=== PATIENT | male | born 1975 | race Caucasian/White ===

== ENCOUNTER 2023-05-12 16:21 | Inpatient (IN) | payer OTHER ==
[2023-05-12] VITALS (13 sets, daily range): BP systolic 95–147; BP diastolic 44–99; PULSE 50–143; RESP 14–25; TEMP 97.5–98.4; O2SAT 96–100
[~2023-05-12] VITALS: Ht 198.1 cm; Wt 129.0 kg
[2023-05-12] MEDS ORDERED: nitroGLYCERIN 0.2mg/hour patch TD STA (16:42)
[2023-05-12] MEDS ORDERED: metoprolol tartrate 1mg/ml inj IV ONE (16:45)
[2023-05-12] MEDS ORDERED: normal saline 1000ML IV soln IVB ONE (16:45)
[2023-05-12] MEDS ORDERED: aspirin 81mg tab.chew PO ONE (16:45)
[2023-05-12 16:58] LABS: BASOPHILS # (AUTO) 0.1 X10'3 (0-0.2); BASOPHILS % (AUTO) 0.8 % (0-1); EOSINOPHILS # (AUTO) 0.1 X10'3 (0-0.9); EOSINOPHILS % (AUTO) 0.7 % (0-6); HEMATOCRIT 48.3 % (42.0-52.0); HEMOGLOBIN 16.7 g/dl (14.0-17.9); LYMPHOCYTES % (AUTO) 24.7 % (21-51); MEAN CORPUSCULAR HEMOGLOBIN 33.1 PG (27.0-31.0); MEAN CORPUSCULAR HGB CONC 34.7 g/dL (33.0-36.5); MEAN CORPUSCULAR VOLUME 95.4 FL (78-98); MEAN PLATELET VOLUME 7.1 FL (7.4-10.4); MONOCYTES # (AUTO) 1.3 X10'3 (0-0.9); MONOCYTES % (AUTO) 10.8 % (2-12); NEUTROPHILS # (AUTO) 7.5 X10'3 (1.8-7.7); PLATELET COUNT 314 X10'3 (140-440); RED BLOOD COUNT 5.06 X10'6 (4.70-6.10); RED CELL DISTRIBUTION WIDTH 13.4 % (11.5-14.5)
[2023-05-12] MEDS ORDERED: fentaNYL/PF 50MCG/1 ML 2ML syringe ONE (17:06)
[2023-05-12] MEDS ORDERED: midazolam 1 mg/ML 2ml injection ONE ×2 (17:06→17:11)
[2023-05-12 17:10] LABS: APTT 26 SECONDS (22-32); PROTHROMBIN TIME 10.3 SECONDS (9.0-12.0)
[2023-05-12] MEDS ORDERED: iohexol 350MG/ML 100ml bottle IV ONE (17:11)
[2023-05-12] MEDS ORDERED: ticagrelor 90mg tablet ONE (17:15)
[2023-05-12 17:17] LABS: ALANINE AMINOTRANSFERASE 43 U/L (12-78); ALBUMIN 3.8 G/DL (3.4-5.0); ALBUMIN/GLOBULIN RATIO 0.9 (1.1-1.5); ALKALINE PHOSPHATASE 79 IU/L (46-116); ANION GAP 13 (8-16); ASPARTATE AMINO TRANSFERASE 24 U/L (10-37); BILIRUBIN,TOTAL 0.7 MG/DL (0.1-1.0); BLOOD UREA NITROGEN 13 MG/DL (7-18); CALCIUM 9.1 MG/DL (8.5-10.1); CHLORIDE 101 MMOL/L (99-107); CREATININE 1.08 MG/DL (0.60-1.10); GLUCOSE 97 MG/DL (70-104); MAGNESIUM 1.9 MG/DL (1.5-2.4); PRO BRAIN NATRIURETIC PEPTIDE 80 PG/ML (0-125); SODIUM 138 MMOL/L (135-145); TOTAL CARBON DIOXIDE 24.1 MMOL/L (24-32); TOTAL PROTEIN 8.2 G/DL (6.4-8.2); eCRCL 109 ML/MIN; eGFR 73 ML/MIN
[2023-05-12 17:20] LABS: POTASSIUM 2.8 MMOL/L (3.5-5.1)
[2023-05-12] MEDS ORDERED: HYDROcodone/acetaminophen 5mg/325mg tablet PO PRN (18:50)
[2023-05-12] MEDS ORDERED: OXAZEpam 15mg capsule PO PRN (18:50)
[2023-05-12] MEDS ORDERED: nitroGLYCERIN 0.4mg SUBLingual tab SL PRN (18:50)
[2023-05-12] MEDS ORDERED: ondansetron/PF 4mg/2ml inj IV PRN (18:50)
[2023-05-12] MEDS ORDERED: HYDROcodone/acetaminophen 10/325mg tab PO PRN (18:50)
[2023-05-12] MEDS ORDERED: proCHLORperazine 10 MG/2 ml inj IV PRN (18:50)
[2023-05-12] MEDS ORDERED: potassium Cl 20 mEq SR tablet PO STA ×2 (20:22)
[2023-05-12] MEDS: metoprolol tartrate 25mg tablet PO SCH (20:44)
[2023-05-12] MEDS ORDERED: atorvastatin 20mg tablet PO SCH (21:00)
[2023-05-12] MEDS: normal saline 1000ml 1,000 ML IV SCH (21:45)
[2023-05-13] VITALS (9 sets, daily range): BP systolic 115–151; BP diastolic 92–105; PULSE 65–126; RESP 13–21; TEMP 96.9–97.6; O2SAT 94–98
[2023-05-13] MEDS: normal saline 1000ml 1,000 ML IV SCH ×2 (04:50→14:50)
[2023-05-13] MEDS ORDERED: losartan 50mg tablet PO SCH (08:00)
[2023-05-13] MEDS ORDERED: aspirin 81mg, enteric-coated 1 TAB TABLET.DR PO SCH (08:00)
[2023-05-13] MEDS: ticagrelor 90mg tablet PO SCH ×2 (08:17→18:11)
[2023-05-13] MEDS: metoprolol tartrate 25mg tablet PO SCH (08:19)
[2023-05-13] MEDS ORDERED: PANT20TA18 PO (08:22)
[2023-05-13] MEDS ORDERED: NEBI5TAB12 PO (08:22)
[2023-05-13 08:31] LABS: ALBUMIN 3.1 G/DL (3.4-5.0); ANION GAP 9 (8-16); BLOOD UREA NITROGEN 8 MG/DL (7-18); CALCIUM 8.5 MG/DL (8.5-10.1); CHLORIDE 107 MMOL/L (99-107); CHOL/HDL RATIO 4.2 (0.00-4.99); CHOLESTEROL 241 MG/DL (0-200); GLUCOSE 92 MG/DL (70-104); HDL CHOLESTEROL 57 MG/DL (35-60); LDL CHOLESTEROL 155 MG/DL (50-100); SODIUM 140 MMOL/L (135-145); TOTAL CARBON DIOXIDE 23.7 MMOL/L (24-32); TRIGLYCERIDES 135 MG/DL (20-135); eCRCL 148 ML/MIN; eGFR > 90 ML/MIN
[2023-05-13] MEDS ORDERED: pantoprazole 40mg Tablet.DR PO SCH (13:45)
[2023-05-13] MEDS ORDERED: LOSA50TA64 PO (16:57)
[2023-05-13] MEDS ORDERED: TICA90TA PO (16:57)
[2023-05-13] MEDS ORDERED: NITR0.4T51 SL (16:57)
[2023-05-13] MEDS ORDERED: ATOR20TA66 PO (16:57)
[2023-05-13] MEDS ORDERED: LOP25T PO (16:57)
[2023-05-13] MEDS ORDERED: ASPI-1071 PO (16:57)
== END 2023-05-13 18:55 | disposition home or self-care (01) | DRG 322 ==
LOC: ER 16:22 → PCU 3S 17:30
PROVIDERS: ADMIT Internal Medicine Interventional Cardiology; ATTEND Internal Medicine Interventional Cardiology
PROC: 027034Z Dilation of Coronary Artery, One Artery with Drug-eluting Intraluminal Device, Percutaneous Approach (ICD-10-PCS; principal; 2023-05-12)
PROC: 4A023N7 Measurement of Cardiac Sampling and Pressure, Left Heart, Percutaneous Approach (ICD-10-PCS; 2023-05-12)
PROC: B2111ZZ Fluoroscopy of Multiple Coronary Arteries using Low Osmolar Contrast (ICD-10-PCS; 2023-05-12)
DX: I21.3 ST elevation (STEMI) myocardial infarction of unspecified site (principal); I25.10 Atherosclerotic heart disease of native coronary artery without angina pectoris; K21.9 Gastro-esophageal reflux disease without esophagitis; I10 Essential (primary) hypertension; E87.6 Hypokalemia; E78.5 Hyperlipidemia, unspecified; L40.9 Psoriasis, unspecified; F17.290 Nicotine dependence, other tobacco product, uncomplicated; F10.90 Alcohol use, unspecified, uncomplicated; Z79.82 Long term (current) use of aspirin; Z88.0 Allergy status to penicillin; Z82.49 Family history of ischemic heart disease and other diseases of the circulatory system
CPT/HCPCS: 93306; 93454; 99285; C9606; 36415; 71045; 80048; 80053; 80061; 83735; 83880; 84484; 85025; 85610; 85730; 86885; 86900; 86901; 87081; 93005; 99152; 99153; A6258; C1725; C1751; C1769; C1874; G0378; J2250; J3010; J3490; J7030; Q9967

== ENCOUNTER 2023-09-24 08:12 | Emergency (ER) | payer OTHER ==
[~2023-09-24] VITALS: Ht 198.1 cm; Wt 118.3 kg
[~2023-09-24 08:12] MED LIST: ASPI-1071 PO; ATOR20TA66 PO; LOP25T PO; LOSA50TA64 PO; NITR0.4T51 SL; PANT20TA18 PO; TICA90TA PO
[2023-09-24 08:36] LABS: BASOPHILS # (AUTO) 0.1 X10'3 (0-0.2); BASOPHILS % (AUTO) 0.8 % (0-1); EOSINOPHILS # (AUTO) 0.1 X10'3 (0-0.9); EOSINOPHILS % (AUTO) 1.1 % (0-6); HEMATOCRIT 45.3 % (42.0-52.0); HEMOGLOBIN 15.4 g/dl (14.0-17.9); LYMPHOCYTES # (AUTO) 2.3 X10'3 (1.1-4.8); MEAN CORPUSCULAR HEMOGLOBIN 32.3 PG (27.0-31.0); MEAN CORPUSCULAR HGB CONC 34.1 g/dL (33.0-36.5); MEAN CORPUSCULAR VOLUME 94.7 FL (78-98); MEAN PLATELET VOLUME 7.3 FL (7.4-10.4); MONOCYTES # (AUTO) 1.4 X10'3 (0-0.9); MONOCYTES % (AUTO) 14.1 % (2-12); NEUTROPHILS # (AUTO) 6.2 X10'3 (1.8-7.7); PLATELET COUNT 338 X10'3 (140-440); RED BLOOD COUNT 4.78 X10'6 (4.70-6.10); RED CELL DISTRIBUTION WIDTH 13.2 % (11.5-14.5); WHITE BLOOD COUNT 10.2 X10'3 (4.5-11.0)
[2023-09-24 08:50] LABS: ALANINE AMINOTRANSFERASE 35 U/L (12-78); ALBUMIN 3.6 G/DL (3.4-5.0); ALBUMIN/GLOBULIN RATIO 0.9 (1.1-1.5); ALKALINE PHOSPHATASE 87 IU/L (46-116); ANION GAP 9 (8-16); ASPARTATE AMINO TRANSFERASE 23 U/L (10-37); BILIRUBIN,TOTAL 0.8 MG/DL (0.1-1.0); BLOOD UREA NITROGEN 8 MG/DL (7-18); BUN/CREATININE RATIO 8.2 (10.0-20.0); CALCIUM 8.8 MG/DL (8.5-10.1); CHLORIDE 100 MMOL/L (99-107); CREATININE 0.98 MG/DL (0.60-1.10); GLUCOSE 101 MG/DL (70-104); POTASSIUM 3.6 MMOL/L (3.5-5.1); SODIUM 133 MMOL/L (135-145); TOTAL CARBON DIOXIDE 24.1 MMOL/L (24-32); TOTAL PROTEIN 7.8 G/DL (6.4-8.2); eCRCL 120 ML/MIN; eGFR 82 ML/MIN
[2023-09-24 08:58] LABS: PRO BRAIN NATRIURETIC PEPTIDE 70 PG/ML (0-125)
[2023-09-24 12:33] VITALS: BP 135/79; PULSE 75; RESP 14; TEMP 98; O2SAT 100
== END 2023-09-24 12:35 | disposition home or self-care (01) ==
LOC: ER 08:12
DX: R07.89 Other chest pain (principal); I10 Essential (primary) hypertension; K21.9 Gastro-esophageal reflux disease without esophagitis; Z88.0 Allergy status to penicillin; Z79.82 Long term (current) use of aspirin; Z79.899 Other long term (current) drug therapy
CPT/HCPCS: 36415; 71045; 80053; 83880; 84484; 85025; 93005; 99285

== ENCOUNTER 2025-01-08 18:12 | Inpatient (IN) | payer OTHER ==
[~2025-01-08] VITALS: Ht 198.1 cm; Wt 118.0 kg
[~2025-01-08 18:12] MED LIST changes: +heparin, porcine-25,000 units/D5-250ml premix IV ONE; +metoprolol tartrate 1mg/ml inj IV ONE
--- NOTE | 2025-01-08 18:33 | ELECTROCARDIOGRAPH REPORT ---
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
[2025-01-08 18:42] LABS: MEAN PLATELET VOLUME 7.8 FL (7.4-10.4); RED CELL DISTRIBUTION WIDTH 13.1 % (11.5-14.5)
[2025-01-08 18:56] LABS: CREATININE 1.02 MG/DL (0.60-1.10); PRO BRAIN NATRIURETIC PEPTIDE 715 PG/ML (0-125); TOTAL CARBON DIOXIDE 27.1 MMOL/L (24-32); eGFR 78 ML/MIN
--- NOTE | 2025-01-08 19:05 | Physician Documentation ---
History of Present Illness General Chief Complaint: Chest Pain Stated Complaint: CP/SOB Time Seen by MD: 19:05 History of Present Illness Initial Comments The patient is a 49-year-old male with a past history of coronary artery disease in an RCA stent in the past and known disease of his LAD that was not stented. The patient states he has had stuttering chest pain over last four days. Patient states he has intermittently had chest pain usually lasting minutes to 1/2 hour or so throughout the day. The patient states he had pain prior to arrival in the emergency room it was resolved by the time he arrived in the emergency room. Patient does complain of some thoracic back pain. He also had some slight sweats. The patient has a strong family history of cardiac disease. The patient does have hypertension. He is a nonsmoker. Patient's symptoms improved but during the H and P the patient developed some slight substernal chest pressure. States he takes a baby aspirin at home. Medication Reconciliation Allergies: Coded Allergies: Penicillins (Verified Allergy, Unknown, 09/24/23) Scheduled Aspirin (Ecotrin*), 1 TAB PO DAILY Atorvastatin Calcium (Atorvastatin Calcium), 40 MG PO HS Losartan Potassium (Losartan Potassium), 50 MG PO DAILY Metoprolol Tartrate* (Lopressor tablet*), 25 MG PO BID Pantoprazole Sodium (Protonix), 1 TAB PO BID, (Reported) Ticagrelor (Brilinta), 90 MG PO BID Scheduled PRN Nitroglycerin SL* (Nitrostat SL*), 0.4 MG SL Q5MIN PRN for X3 CHEST PAIN-NOTIFY MD Past Medical History Past Medical History: Hypertension, GERD, Psoriasis Past Surgical History: no surgical history Alcohol Use: Occasionally Drug Use: none Lives with: Spouse Lives In: Home Occupation: employed Review of Systems All Other Systems at this time: Reviewed and Negative Physical Exam Physical Exam Vital Signs: Temperature: 98.1, Source: Temporal, Heart Rate: 95, Respiratory Rate: 16, BP: 136/97, Pulse Oximetry: 98 Oxygen Flow Rate: 0 Physical Exam VITALS: Reviewed and as above. GENERAL: Alert, no apparent distress. HEENT: Normocephalic, atraumatic, PERRL, EOMI, dry mucosa, no erythema RESPIRATORY: Lungs clear, normal breath sounds, no respiratory distress. CHEST: No accessory muscle use, no retractions CV: Regular rate, rhythm, no edema, no murmur, No: JVD GI: Soft, non-tender, bowels sounds present, no rebound, guarding, or rigidity BACK: No CVA tenderness, or swelling MUSCULOSKELETAL: No deformities, no edema SKIN: Warm and dry, no rash NEURO: Oriented x4, No motor or sensory deficit PSYCH: Normal mood and affect, no agitation Progress Results/Orders Results/[facility]ders [facility] Chest,Single View (01/08/25 18:47) Monitor (01/08/25 18:25) Saline Lock (01/08/25 18:25) Oxygen (01/08/25 18:25) Hs Troponin I W Calculations (01/08/25 20:25) Hs Troponin I W Calculations (01/08/25:25) Pt Inr (01/08/25 19:13) PTT (01/08/25 19:13) Heparin 25,000 Unit/250ml Bag (Heparin 2 (01/08/25 19:15) Heparin 10,000 Unit/Ml 1ml (Heparin 10,0 (01/08/25 19:15) Completed Orders - KYANGIE BERRY MD Chest,Single View (01/08/25 18:47) Cbc/Diff (01/08/25 18:25) BMP (01/08/25 18:25) PBNP (01/08/25 18:25) Electrocardiogram (01/08/25 18:25) Hs Troponin I W Calculations (01/08/25 18:25) Stat Ekg (01/08/25 19:13) Aspirin 81mg Chew Tablet (Aspirin 81mg C (01/08/25 19:15) Nitroglycerin 0.4mg/Hr Patch (Nitro-Dur (01/08/25 19:15) Metoprolol Tartrate Inj (Lopressor Iv) (01/08/25 19:15) Heparin 10,000 Unit/Ml 1ml (Heparin 10,0 (01/08/25 19:30) Stat Ekg (01/08/25 19:29) Medications Received in ER Medications (Trade) Dose Ordered Sig/Ruddy Route PRN Reason Start Time Stop Time Status Last Admin Dose Admin (aspirin 81MG chew tablet) 324 mg ONCE ONCE PO 01/08/25 19:15 01/08/25 19:16 DC 01/08/25 19:27 324 MG (Nitro-Dur 0.4mg/ hour Patch) 1 patch ONCE ONCE TD 01/08/25 19:15 01/08/25 19:16 DC 01/08/25 19:27 1 PATCH (heparin 10,000 unit/ml 1ml inj) bolus for correct... PRN PRN IV per protocol-CARDIAC 01/08/25 19:15 01/08/25 19:32 1,000 UNITS (Lopressor IV) 5 mg ONCE ONCE IV 01/08/25 19:15 01/08/25 19:16 DC 01/08/25 19:27 5 MG (heparin 10,000 unit/ml 1ml inj) 4,000 units ONCE ONCE IV 01/08/25 19:30 01/08/25 19:31 DC 01/08/25 19:36 4,000 UNITS Vital Signs 01/08/25 01/08/25 01/08/25 18:33 19:10 19:27 Temp 98.1 98.1 Pulse 95 101 105 Resp 16 14 B/P (MAP) 136/97 151/106 (121) Pulse Ox 98 98 O2 Flow Rate 0 0 Laboratory Tests Test 01/08/25 18:24 01/08/25 19:34 White Blood Count 13.3 H Red Blood Count 5.12 Hemoglobin 16.1 Hematocrit 47.0 Mean Corpuscular Volume 91.9 Mean Corpuscular Hemoglobin 31.5 H Mean Corpuscular Hemoglobin Concent 34.3 Red Cell Distribution Width 13.1 Platelet Count 336 Mean Platelet Volume 7.8 Neutrophils (%) (Auto) 66.0 Lymphocytes (%) (Auto) 21.3 Monocytes (%) (Auto) 9.7 Eosinophils (%) (Auto) 2.2 Basophils (%) (Auto) 0.8 Neutrophils # (Auto) 8.8 H Lymphocytes # (Auto) 2.8 Monocytes # (Auto) 1.3 H Eosinophils # (Auto) 0.3 Basophils # (Auto) 0.1 CBC Comment Coagulation Comments Sodium Level 137 Potassium Level 3.8 Chloride Level 104 Carbon Dioxide Level 27.1 Anion Gap 6 L Blood Urea Nitrogen 11 Creatinine 1.02 Estimated GFR/1.73 m2 78 BUN/Creatinine Ratio 10.8 Glucose Level 149 H Calcium Level 8.8 Troponin I High Sensitivity 8233 *H Pro-B-Type Natriuretic Peptide 715 H Albumin 3.5 Chemistry Comments EKG/XRAY/CT/US/VASC/MRI Chest X-Ray : Additional Comments [address] , [place], [facility] [address] DIAGNOSTIC RADIOLOGY Patient: FOREIGN CAMPOS Medical Record: [id number] [facility] : 1975, Age: 49 Sex: Male Location: ER Patient Status: [facility] ER Service Date/Time: 01/08/251846 Ordering Physician: ANGIE BORREGO MD Exam: CHEST,SINGLE VIEW CHEST RADIOGRAPH Indication: CP Technique: Single frontal view of the chest was obtained Comparison: DI CHEST,SINGLE VIEW on DOS: 09/24/23, DI CHEST,SINGLE VIEW on DOS: 05/12/23 FINDINGS: Lines and Tubes: None Lungs: No focal consolidation. Pleura: No effusion. No pneumothorax. Cardiomediastinal contours: Unremarkable Bones: No acute osseous abnormality. IMPRESSION: No acute cardiopulmonary disease. Electronically Signed by:NATALIIA FERRO DO Date & Time: 01/08/251911 Dictated by: NATALIAI FERRO DO Dictation date and time: 01/08/251844 Primary Care Provider: NO PRIMARY CARE PROVIDER cc: ANGIE BORREGO MD ~ Medical Decision Making Findings Patient with a significant cardiac history the patient came in with stuttering chest pain. Patient has had a right-sided stent in his posterior descending artery and April of 2023. Patient has had pain over last four days. Patient developed some chest discomfort while in the emergency room while I was doing his physical exam and repeat EKG showed ST depression in V1 and V2 suspicious for posterior myocardial infarction. His STEMI alert was called. The patient had a posterior EKG that was interpreted by me as showing a left axis deviation with ST depression in V1 V2 an ST-elevation in V5 and V6 consistent with a posterior OK he additionally has Q-waves inferiorly in lead three and AVF. interpreted that EKG at 7:26 p.m.. His heart rate was 102 and sinus tachycardia at that time. His initial EKG was interpreted by me as being a sinus rhythm w ithout evidence of ST-elevation with a heart rate of 100 the patient did have left axis deviation and Q-waves inferiorly in three and AVF his initial EKG did not demonstrate an acute ST-elevation OK. the patient received 324 of aspirin at the bedside patient was given two doses of metoprolol IV and he was started on IV heparin. The patient's chest x-ray was interpreted by me as showing a normal mediastinum normal cardiac silhouette and normal-appearing lung leggett interpreted as chest x-ray as showing being a normal chest x-ray. Prior hospitalizations have been reviewed labs were interpreted the patient has a elevated troponin of 8000. Departure Referrals: NO PRIMARY CARE PROVIDER (PCP) ANGIE BORREGO MD Jan 08, 2025 19:05
[2025-01-08] MEDS ORDERED: heparin 25,000 UNIT/250ml bag 250 ML IV PRN (19:15)
[2025-01-08] MEDS ORDERED: heparin 10,000 units/1 ML INJ IV ONE (19:15)
--- NOTE | 2025-01-08 19:15 | RADIOLOGY REPORT ---
CHEST RADIOGRAPH Indication: CP Technique: Single frontal view of the chest was obtained Comparison: DI CHEST,SINGLE VIEW on DOS: 09/24/23, DI CHEST,SINGLE VIEW on DOS: 05/12/23 FINDINGS: Lines and Tubes: None Lungs: No focal consolidation. Pleura: No effusion. No pneumothorax. Cardiomediastinal contours: Unremarkable Bones: No acute osseous abnormality. IMPRESSION: No acute cardiopulmonary disease.
--- NOTE | 2025-01-08 19:19 | ELECTROCARDIOGRAPH REPORT ---
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
[2025-01-08] MEDS: metoprolol tartrate 1mg/ml inj IV ONE (19:27)
--- NOTE | 2025-01-08 19:31 | ELECTROCARDIOGRAPH REPORT ---
[facility] Test Date: 2025-01-08 Test Time: 19:26:34 Pat Name: FOREIGN CAMPOS Department: EMERGENCY ROOM Room: Gender: M Hand Surgeon: : 1975 Requested By: ANGIE BORREGO Order Number: [id number] Reading MD: Measurements Intervals [place] Rate: 102 P: 50 NC: 165 QRS: -26 QRSD: 97 T: 60 QT: 345 QTc: 450 Interpretive Statements Age not entered, assumed to be 50 years old for purpose of ECG interpretation Sinus tachycardia Inferior infarct, old Lateral leads are also involved Please click the below link to view image of tracing.
[2025-01-08] MEDS: heparin 10,000 units/1 ML INJ IV PRN (19:32)
[2025-01-08] MEDS: heparin 10,000 units/1 ML INJ IV ONE (19:36)
[2025-01-08] MEDS ORDERED: LIDOcaine 1% (10mg/ml) 2ml vial ONE (19:39)
[2025-01-08] MEDS ORDERED: heparin 1,000unit/ml 10ml vial 10 ML ONE (19:39)
[2025-01-08] MEDS ORDERED: fentaNYL/PF 50MCG/1 ML 2ML syringe ONE (19:39)
[2025-01-08] MEDS ORDERED: verapamil 2.5 mg/ml inj IV ONE (19:39)
[2025-01-08] MEDS ORDERED: midazolam 1 mg/ML 2ml injection ONE (19:39)
[2025-01-08] MEDS ORDERED: nitroGLYCERIN 500mcg/5mL D5W 0 ML IV ONE (19:40)
[2025-01-08 19:42] LABS: APTT 27 SECONDS (22-32); INR 1.0 INR
[2025-01-08] MEDS: metoprolol tartrate 1mg/ml inj IV STA (19:44)
[2025-01-08] MEDS ORDERED: LIDOcaine 1% 30ml preserv. free vial ONE (19:55)
[2025-01-08] MEDS ORDERED: clopidogrel 300mg tablet ONE (20:12)
--- NOTE | 2025-01-08 20:33 | CARDIAC CATH REPORT ---
Cardiac Cath Report Providers to CC CC: Satya Gates MD Procedure Comments: 1. Selective Coronary Angiography 2. Percutaneous Coronary Intervention of the Left Anterior Descending x 1 3. Percutaneous Coronary Intervention of the Left Circumflex Artery x 1 4. Right Femoral artery access 5. Right femoral artery angiography 6. Closure of femoral artery with Perclose x 1 Brief History/Indications: 49yo man with HTN, HLD, CAD(s/p PCI PDA 04/2024) admitted with worsening CP x 1 day, found to have dynamic EKG changes with intermittent chest pains and elevated trop. Techniques: After informed consent was obtained, the patient was brought to the cardiac catheterization laboratory and prepped and draped in usual sterile fashion for left heart catheterization and other procedures mentioned above. The right groin was anesthetized with 1% Lidocaine and the femoral artery accessed via the Seldinger technique after which a 6Fr sheath was placed. Through this a JL4 was used to engage the left coronary artery, a JR4 to engage the right coronary artery. At the conclusion of the case the sheath was removed and hemostasis obtained with a Perclose device. See below for interventional procedure details. Findings Findings: HEMODYNAMICS: See procedure log CORONARY ARTERIES: Rt Dominant LMCA: Long, Luminal Irregularities LAD: 90% mid stenosis D1: Luminal Irregularities D2: Ostial 30-40% stenosis D3: Luminal Irregularities LCx: 90% mid stenosis OM1: Luminal Irregularities OM2: Luminal Irregularities RCA: 20% mid and distal stenosis PDA: Patent ostial stent. Luminal Irregularities PL: Luminal Irregularities PERCUTANEOUS CORONARY INTERVENTION of the LAD: An XB LAD 4.0 guide was used to engage the left coronary artery. The LAD lesion was crossed with a BMW wire. Pre-dilatation was performed with a 2.0x12mm balloon. Repeat angiography revealed adequate pre-treatment of the lesion without evidence of dissection. Subsequently, a 3.5x15mm [place] ALVA was deployed across the lesion. The lesion was not post-dilated. Repeat angiography revealed adequate stent expansion without evidence of dissection. PERCUTANEOUS CORONARY INTERVENTION of the LCx: The same XB LAD 4.0 guide was used to engage the left coronary artery. The LCx lesion was crossed with a BMW wire. Pre-dilatation was performed with a 2.0x12mm balloon. Repeat angiography revealed adequate pre-treatment of the lesion without evidence of dissection. Subsequently, a 3.5x12mm Bijan [place] ALVA was deployed across the lesion. The lesion was not post-dilated. Repeat angiography revealed adequate stent expansion without evidence of dissection. Results Results: 1. Patent PDA stent. 90% mid LAD stenosis. 90% mid LCx stenosis 2. PCI of the mid-LAD with 3.5x15mm [place] ALVA 3. PCI of the mid-LCx with 3.5x15mm Bijan [place] ALVA 4. RFA Access, closed with Perclose x 1 RECOMMENDATIONS: 1. Cont ASA 81mg QD indefinitely 2. Cont plavix 75mg QD x 12 months (prev intolerant to Brilinta) 3. Recommend uptitration of other max-tolerated GDMT SIMRAN NIXON MD Jan 08, 2025 20:33
[2025-01-08] MEDS ORDERED: mag hydrox/Alum hydrox/simeth 30ml oral suspension PO PRN (20:50)
[2025-01-08] MEDS ORDERED: magnesium sulf-water 2g/50mL 50 ML IV PRN (20:50)
[2025-01-08] MEDS ORDERED: magnesium Cl slow-release 64mg tablet PO PRN (20:50)
[2025-01-08] MEDS ORDERED: magnesium sulf-water 4G/100mL 100 ML IV PRN (20:50)
[2025-01-08] MEDS ORDERED: potassium Cl 40MEQ/1/2NS 520ml 520 ML IV PRN (20:50)
[2025-01-08] MEDS ORDERED: ondansetron/PF 4mg/2ml inj IV PRN (20:50)
[2025-01-08] MEDS ORDERED: potassium Cl 20 mEq SR tablet PO PRN ×2 (20:50)
[2025-01-08] MEDS ORDERED: magnesium hydroxide 30ml (MOM) UD suspension PO PRN (20:50)
--- NOTE | 2025-01-08 20:59 | HISTORY AND PHYSICAL-Residence ---
History & Physical Providers to CC Resident Creating Document: JOSE LUIS CLARKE, NILO ~ History of Present Illness Reason for Admit\Complaint: NSTEMI History of Present Illness This is a 49-year-old male with a history of hypertension, hyperlipidemia, GERD, history of CAD with STEMI s/p PDA stent in 05/13 came to the ER with a chief complaint of chest pain. The patient reported that since he had about 4-5 episodes of chest pain, each lasting about 15 minutes. Last night he woke up with a chest pain at 11:30 and 2:30, he then decided to come to the ER. He describes the chest pain as a heavy sensation, located in the center of the chest, radiating to both his arms, graded 9/10. The pain is associated with diaphoresis, shortness of breadth, palpitations, tingling and numbness sensation in bilateral upper extremities. His checked vitals which were normal. On Thursday patient did visit his outdoor adventure guides, EKG done at the office was normal, was recommended to have a stress test. He has a strong family history of heart disease. His father with a cardiac arrest in at the age 45. Insurance Administrator is Dr. Weaver Course in the ER: Initial EKG was normal, repeat EKG while the patient was having chest pain showed ST depressions in V1 and V2, elevation in V5 V6, Q- waves in III and AVF STEMI alert was called. Patient received 324 mg of aspirin and was started on heparin drip. Dr. Mariano was called and patient was taken to clinical laboratory technician, stents were placed in LAD and LCX. Allergies: Coded Allergies: Penicillins (Verified Allergy, Unknown, 09/24/23) Home Medications Home Medications Active Ecotrin* (Aspirin) 81 Mg Tablet.dr 1 Tab PO DAILY 30 Days Losartan Potassium 50 Mg Tablet 50 Mg PO DAILY 30 Days Lopressor tablet* (Metoprolol Tartrate) 25 Mg Tablet 25 Mg PO BID 30 Days Hold for SBP below 100mm Hg Hold for Heart Rate below 60. Nitrostat SL* (Nitroglycerin) 0.4 Mg Tablet 0.4 Mg SL Q5MIN PRN 30 Days Atorvastatin Calcium 20 Mg Tablet 40 Mg PO HS 30 Days Brilinta (Ticagrelor) 90 Mg Tablet 90 Mg PO BID 30 Days Reported Protonix (Pantoprazole Sodium) 20 Mg Tablet.dr 1 Tab PO BID Past Medical History Past Medical History Hypertension Hyperlipidemia GERD CAD s/p PCI in PDA in 05/13 Past Surgical History Surgical History Comment PCI in PDA in 05/13 Family History Family History: Cardiac arrest FATHER ( at the age of 45 with cardiac arrest) Early CAD Paternal uncle and aunt Paternal uncle and aunt Paternal uncle and aunt Paternal uncle and aunt Past Social History Social History Comment Quit smoking in 05/13 after the 1st stent, previously smoked about one to two cigarettes a week Drinks couple of beers in the weekend No history of drug use Lives with his 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 Weaver Alcohol Use: Occasionally Drug Use: None Lives with: Spouse Lives In: Home Occupation: employed ROS All Other Systems: Reviewed and Negative Constitutional: Denies: no symptoms reported, see HPI, chills, diaphoresis, fever, malaise, weakness, other Eyes: Denies: no symptoms reported, see HPI, pain, discharge, blurred vision, double vision, itching, photophobia, redness, tearing, other ENT: Denies: no symptoms reported, see HPI, ear pain, ear bleeding, ear discharge, hearing loss, ear ringing, nose pain, nose bleeding, nose congestion, nose discharge, throat pain, throat swelling, voice change, mouth pain, mouth bleeding, mouth swelling, other Respiratory: Denies: no symptoms reported, see HPI, cough, orthopnea, shortness of breath, SOB with exertion, SOB at rest, stridor, wheezing, hemoptysis, pain with breathing, other Cardiovascular: Reports: chest pain Gastrointestinal: Denies: no symptoms reported, see HPI, abdomen distended, abdominal pain, nausea, vomiting, diarrhea, constipated, melena, hematemesis, hematochezia, rectal bleeding, rectal pain, dysphagia, poor appetite, poor fluid intake, other Genitourinary: Denies: no symptoms reported, see HPI, burning, discharge, dysuria, frequency, flank pain, hematuria, incontinence, pain, decreased urine output, urgency, other Male Genitalia: Denies: no symptoms reported, see HPI, penile discharge, penile sore, testicular pain, testicular swelling, other Neurological: Denies: no symptoms reported, see HPI, speech problem, headache, dizziness, fainting, tingling, left sided numbness, right sided numbness, left sided weakness, right sided weakness, problems walking, unable to move lower ext, unable to move upper ext, petit mal seizures, tonic-clonic seizures, cognitive dysfunction, other Musculoskeletal: Denies: no symptoms reported, see HPI, pain, swelling, back pain, gout, joint pain, joint swelling, muscle pain, muscle swelling, muscle stiffness, neck pain, other Exam Vitals: Vital Signs Date Time Temp Pulse Resp B/P (MAP) Pulse Ox O2 Delivery O2 Flow Rate FiO2 01/08/25 19:46 99 12 156/93 (114) 98 01/08/25 19:11 0 01/08/25 19:10 98.1 General: General: Alert, awake, oriented, not in acute distress,. HEENT: PERRLA, no icterus, pallor, lymphadenopathy, carotid bruit Respiratory system: Bilateral vesicular breath sounds heard, no adventitious breath sounds CVS: S1-S2 heard, no murmurs/rubs/gallop GI: Soft, nontender, no organomegaly, no guarding/rigidity, bowel sounds normal Neuro: No focal neurological deficits present Extremities: No edema, no cyanosis, no clubbing. Skin: Warm and dry Diagnostic Data Last Recorded Lab Results: 01/08/25 1824 01/08/25 1824 Diagnostic Data: Laboratory Tests Test 01/08/25 18:24 Prothrombin Time 10.7 SECONDS (9.0-12.0) INR International Normalized Ratio 1.0 INR Activated Partial Thromboplast Time 27 SECONDS (22-32) Coagulation Comments Advance Care Planning Advanced Care plannin - 30 Minutes (I spent 17 minutes in discussing various resuscitative measures, the patient chose to be full code.) Additional Plan Assessment This is a 49-year-old male with a history of hypertension, hyperlipidemia, GERD, history of CAD with STEMI s/p PDA stent in 05/13 came to the ER with a chief complaint of chest pain. A STEMI alert was called in the ER, PCI in LAD and LCX was done by Dr. Mariano the clinical laboratory technician. Plan STEMI s/p PCI of LAD, LCX History of CAD s/p PCI of PDA Troponins 8233, 6585 EKG left axis deviation with ST depression in V1 V2 an ST-elevation in V5 and V6, Q-waves inferiorly in lead three and AVF Received aspirin 325 mg in the ER, was started on heparin drip and was taken to clinical laboratory technician. LAD and LCX showed 90% mid stenosis s/p PCI, 30-40% D2 ostial stenosis, RCA 20% mid and distal stenosis. Patient was previously on aspirin 81 mg alternate day and Eliquis 5 mg daily(he could not tolerate Brilinta because of anxiety) Plan Dr. Mariano recommended aspirin 81 mg and Plavix 75 mg for 12 months Increased the dose of Lipitor from 10 mg to 40 mg, started on metoprolol succinate 25 mg. Elevated proBNP ProBNP 715 Previous echo in 05/13 showed normal left ventricular wall size and thickness, ejection fraction 65-70% Repeat echo ordered Patient is not fluid overloaded. History of hypertension Patient is currently on metoprolol succinate 25 mg Hyperlipidemia Lipid panel ordered Patient is on atorvastatin 10 mg at home increased to 40 mg. History of GERD Pantoprazole 40 mg p.o. daily Code status: Full code DVT prophylaxis: Heparin GI prophylaxis: Pantoprazole Diet: Heart healthy diet Lines/tubes: Peripheral IV line Jose Luis Clarke M.D PGY2 Date of Service: Jan 08, 2025 Billing Provider: ANGÉLICA CHRISTIE MD, PRAVAHIKA, RES Jan 08, 2025 20:59
[2025-01-08] MEDS: MESSAGE TO NURSING IV ONE (21:09)
[2025-01-08 21:15] VITALS: BP 127/83; PULSE 82
[2025-01-08 21:30] VITALS: BP 132/86; PULSE 81
[2025-01-08 21:45] VITALS: BP 119/79; PULSE 82
[2025-01-08 22:00] VITALS: BP 119/79; PULSE 78; RESP 18; TEMP 97.6; O2SAT 96
[2025-01-08] MEDS ORDERED: PANT20TA18 PO (22:02)
[2025-01-08] MEDS ORDERED: ASPI-1071 PO (22:02)
[2025-01-08] MEDS ORDERED: ATOR20TA66 PO (22:02)
[2025-01-08] MEDS ORDERED: APIX5TAB5 PO (22:08)
[2025-01-08] MEDS ORDERED: NEBI5TAB9 PO (22:11)
[2025-01-08] MEDS ORDERED: ALLO100T PO (22:13)
[2025-01-08 22:30] VITALS: BP 121/83; PULSE 76
[2025-01-08] MEDS: pantoprazole 40mg Tablet.DR PO SCH (22:40)
[2025-01-08 23:00] VITALS: BP 113/76; PULSE 80
[2025-01-09] VITALS (9 sets, daily range): BP systolic 97–128; BP diastolic 62–81; PULSE 71–88; RESP 17–18; TEMP 97.9–98.3; O2SAT 95–97
[2025-01-09] MEDS ORDERED: pantoprazole 40mg Tablet.DR PO SCH (07:30)
[2025-01-09 07:53] LABS: MEAN PLATELET VOLUME 8.2 FL (7.4-10.4); RED CELL DISTRIBUTION WIDTH 13.4 % (11.5-14.5)
[2025-01-09] MEDS ORDERED: heparin, porcine 5000 units/ml vial SQ SCH (08:00)
[2025-01-09] MEDS: docusate sod 100mg capsule PO SCH (08:00)
[2025-01-09] MEDS: K and/or MAG REPLACEMENT MC SCH (08:00)
[2025-01-09 08:27] LABS: CHOL/HDL RATIO 3.2 (0.00-4.99); CREATININE 0.79 MG/DL (0.60-1.10); LDL CHOLESTEROL 89 MG/DL (50-100); TOTAL CARBON DIOXIDE 25.1 MMOL/L (24-32); eCRCL 146 ML/MIN; eGFR > 90 ML/MIN
[2025-01-09] MEDS: metoprolol succinate 25mg (24-HOUR) SR. Tablet PO SCH (08:41)
[2025-01-09] MEDS: aspirin 81mg, enteric-coated 1 TAB TABLET.DR PO SCH (08:41)
[2025-01-09] MEDS ORDERED: CLOP75TA34 PO (11:24)
[2025-01-09] MEDS ORDERED: METO-395 PO (11:24)
[2025-01-09] MEDS ORDERED: ATOR20TA66 PO (11:24)
[2025-01-09] MEDS ORDERED: LOSA25TA41 PO (11:25)
--- NOTE | 2025-01-09 16:39 | DISCHARGE SUMMARY ---
Discharge Summary Providers to CC ~ Discharge Summary Admission Diagnosis: NSTEMI Hospital Course DATE OF ADMISSION: 2024 DATE OF DISCHARGE: 2024 CBC TESTING DONE ON 2024 WBC 9.9 HEMOGLOBIN 14.9 HEMATOCRIT 43.5 PLATELET COUNT 283. CMP done on January 09, 2025 sodium 141 potassium 4.2 creatinine 0.79 GFR 90 hemoglobin A1c 5.2. Troponin [id number]. BNP 790 normal lipid panel CHEST,SINGLE VIEWIMPRESSION: No acute cardiopulmonary disease. Discharge Diagnosis\\Comment: STEMI s/p PCI of LAD, LCX History of CAD s/p PCI of PDA Elevated proBNP History of hypertension Hyperlipidemia History of GERD Operations\\Procedures: PCI in LAD and LCX was done by Dr. Mariano the general laborer. Consultants: Dr Leonardo Mariano Complications: None Condition on DC: Stable New Medications: Losartan Potassium (Losartan Potassium) 25 Mg Tablet 1 TAB PO DAILY for 30 Days, #30 TAB 0 Refills Atorvastatin Calcium (Atorvastatin Calcium) 20 Mg Tablet 40 MG PO DAILY for 30 Days, #30 TAB Clopidogrel Bisulfate (Clopidogrel) 75 Mg Tablet 75 MG PO DAILY for 30 Days, #30 TAB Do not stop medication unless instructed by prescriber. Metoprolol Succinate (Metoprolol Succinate) 25 Mg Tab.sr.24h 25 MG PO DAILY for 30 Days, #30 TAB.SR Continued Medications: Allopurinol* (Allopurinol*) 100 Mg Tablet 1 TAB PO DAILY for 30 Days, #30 TAB Aspirin (Ecotrin*) 81 Mg Tablet.dr 1 TAB PO HS for 30 Days, TAB.SR Nitroglycerin SL* (Nitrostat SL*) 0.4 Mg Tablet 0.4 MG SL Q5MIN PRN for X3 CHEST PAIN-NOTIFY MD for 30 Days, TAB Pantoprazole Sodium (Protonix) 20 Mg Tablet.dr 1 TAB PO HS for 30 Days Discontinued Medications: Apixaban (Eliquis) 5 Mg (74 Tabs) Tab.ds.pk 1 TAB PO HS for 30 Days, #74 TAB 0 Refills Atorvastatin Calcium (Atorvastatin Calcium) 20 Mg Tablet 20 MG PO HS for 30 Days, TAB Nebivolol Hcl (Bystolic tablet) 5 Mg Tablet 1 TAB PO BID for 30 Days, #30 TAB 0 Refills Discharge Summary: As per admitting provider's history and physical note" This is a 49-year-old male with a history of hypertension, hyperlipidemia, GERD, history of CAD with STEMI s/p PDA stent in 05/13 came to the ER with a chief complaint of chest pain. The patient reported that since he had about 4-5 episodes of chest pain, each lasting about 15 minutes. Last night he woke up with a chest pain at 11:30 and 2:30, he then decided to come to the ER. He describes the chest pain as a heavy sensation, located in the center of the chest, radiating to both his arms, graded 9/10. The pain is associated with diaphoresis, shortness of breadth, palpitations, tingling and numbness sensation in bilateral upper extremities. His checked vitals which were normal. On Thursday patient did visit his geriatric personal care aide, EKG done at the office was normal, was recommended to have a stress test. He has a strong family history of heart disease. His father with a cardiac arrest in at the age 45. Fire Hydrant Mechanic is Dr. Weaver Course in the ER: Initial EKG was normal, repeat EKG while the patient was having chest pain showed ST depressions in V1 and V2, elevation in V5 V6, Q- waves in III and AVF STEMI alert was called. Patient received 324 mg of aspirin and was started on heparin drip. Dr. Mariano was called and patient was taken to general laborer, stents were placed in LAD and LCX." During hospitalization patient was treated for This is a 49-year-old male with a history of hypertension, hyperlipidemia, GERD, history of CAD with STEMI s/p PDA stent in 05/13 came to the ER with a chief complaint of chest pain. A STEMI alert was called in the ER, PCI in LAD and LCX was done by Dr. Mariano the general laborer. Plan STEMI s/p PCI of LAD, LCX History of CAD s/p PCI of PDA Troponins 8233, 6585 EKG left axis deviation with ST depression in V1 V2 an ST-elevation in V5 and V6, Q-waves inferiorly in lead three and AVF Received aspirin 325 mg in the ER, was started on heparin drip and was taken to general laborer. LAD and LCX showed 90% mid stenosis s/p PCI, 30-40% D2 ostial stenosis, RCA 20% mid and distal stenosis. Patient was previously on aspirin 81 mg alternate day and Eliquis 5 mg daily(he could not tolerate Brilinta because of anxiety) Plan Dr. Mariano recommended aspirin 81 mg and Plavix 75 mg for 12 months Increased the dose of Lipitor from 10 mg to 40 mg, started on metoprolol succinate 25 mg. Elevated proBNP ProBNP 715 Previous echo in 05/13 showed normal left ventricular wall size and thickness, ejection fraction 65-70% Repeat echo ordered Patient is not fluid overloaded. History of hypertension Patient is currently on metoprolol succinate 25 mg Hyperlipidemia Lipid panel ordered Patient is on atorvastatin 10 mg at home increased to 40 mg. History of GERD Pantoprazole 40 mg p.o. daily Code status: Full code DVT prophylaxis: Heparin GI prophylaxis: Pantoprazole Diet: Heart healthy diet Patient is feeling better he has been afebrile and getting discharged home in stable condition. Patient is seen and examined on the day of discharge. All labs, diagnostic workup and discharge plan discussed with patient and family members in detail before her discharge. All questions and queries answered to the best of my professional medical knowledge. I heard patient's concerns and address appropriately. Patient was cleared by Physical therapy team for home discharge . manager workers compensation involved in patient's discharge plan. Discharge instructions provided to the patient.please follow up with PCP , methods specialist engineer Owen in 1-2 weeks after discharge. Patient is strongly advised to stop tobacco chewing and risks explained. Adjustment of blood pressure med ication done during hospital stay. Maintain blood pressure and heart rate log book for 2-3 weeks and follow-up with the primary care physician/ methods specialist engineer for hypertension. Activity as tolerated. General-patient not in any acute distress, alert awake oriented, age-appropriate HEENT-atraumatic normocephalic, neck supple without elevated JVD, no thyromegaly or carotid bruit. No lymphadenopathy bilaterally. Eyes-no icterus or pallor seen in eyes Chest-clear to auscultation bilaterally, breathing nonlabored no tachypnea, no wheezing, no crepitation, no crackles. Heart-S1-S2 normal, regular heart rate no murmur Abdomen bowel sounds positive on auscultation, soft nondistended nontender no guarding, no rigidity Skin no active skin rash Neurology-grossly intact, nonfocal alert awake oriented Extremity- no pedal edema able to move all 4 extremities, ambulates Psychiatry - patient is not confused or agitated cooperated during physical examination *Problems/Diagnosis: (1) STEMI (ST elevation myocardial infarction) Status: Acute Total Time Spent on D/C: > 30 Minutes Date of Service: Jan 09, 2025 Billing Provider: JOVANY BARNES MD Common Visit Codes: 24753-JIS/OBS DISCH DAY >30min JOVANY BARNES MD Jan 09, 2025 16:32
== END 2025-01-09 13:02 | disposition home or self-care (01) | DRG 322 ==
LOC: ER 18:12 → PCU 3S 20:53
PROVIDERS: ADMIT Internal Medicine Pulmonary Disease; ATTEND Internal Medicine
PROC: 027135Z Dilation of Coronary Artery, Two Arteries with Two Drug-eluting Intraluminal Devices, Percutaneous Approach (ICD-10-PCS; principal; 2025-01-08)
PROC: B2111ZZ Fluoroscopy of Multiple Coronary Arteries using Low Osmolar Contrast (ICD-10-PCS; 2025-01-08)
DX: I21.09 ST elevation (STEMI) myocardial infarction involving other coronary artery of anterior wall (principal); E78.5 Hyperlipidemia, unspecified; I10 Essential (primary) hypertension; K21.9 Gastro-esophageal reflux disease without esophagitis; I25.10 Atherosclerotic heart disease of native coronary artery without angina pectoris; Z79.01 Long term (current) use of anticoagulants; Z79.02 Long term (current) use of antithrombotics/antiplatelets; Z82.41 Family history of sudden cardiac death; Z82.49 Family history of ischemic heart disease and other diseases of the circulatory system
CPT/HCPCS: 93458; 96374; 96375; 99285; C9601; C9606; 36415; 71045; 80048; 80061; 83036; 83735; 83880; 84484; 85025; 85610; 85730; 87081; 93005; 99152; 99153; A6258; C1725; C1751; C1760; C1769; C1874; C9600; G0378; J1644; J2003; J2250; J2919; J3010; J3490; J7030; Q9967